=== PATIENT | female | born 1985 | race Caucasian/White ===

== ENCOUNTER 2022-05-01 03:30 | Inpatient (IN) | payer BC ==
[~2022-05-01] VITALS: Ht 162.6 cm; Wt 93.3 kg
[2022-05-01 03:57] LABS: Basophils # (auto) 0.1 10 ^3/uL (0-0.2); Basophils % (auto) 0.8 % (0.0-2.0); Eosinophils # (auto) 0 10 ^3/uL (0-0.8); Eosinophils % (auto) 0.1 % (0.0-7.0); Hematocrit 31.8 % (36.0-46.0); Hemoglobin 11.1 g/dL (12.2-16.2); Lymphocytes # (auto) 0.8 10 ^3/uL (0.4-5.4); Lymphocytes % (auto) 8.7 % (10.0-50.0); Mean Corpuscular Hemoglobin 32.2 pg (28.0-32.0); Mean Corpuscular Hgb Conc. 34.8 g/dL (32.0-36.0); Mean Corpuscular Volume 92.3 fL (80.0-100.0); Monocytes # (auto) 0.4 10 ^3/uL (0-1.3); Monocytes % (auto) 4.1 % (0.0-12.0); Neutrophils # (auto) 7.8 10 ^3/uL (1.6-8.6); Neutrophils % (auto) 86.3 % (37.0-80.0); Red Blood Cells 3.45 10^6/uL (4.0-5.20); Red Cell Distribution Width 12.2 % (11.8-14.3)
[2022-05-01 04:13] LABS: Albumin 3.8 g/dL (3.4-5.0); Calcium 8.6 mg/dL (8.5-10.1); Potassium 4.8 mmol/L (3.5-5.1)
[2022-05-01 04:17] LABS: BUN/Creatinine Ratio 22.4; Bilirubin, Total 0.3 mg/dL (0.2-1.0); Total Protein 6.7 g/dL (6.4-8.2)
[2022-05-01 07:16] LABS: Urine WBC None Seen /hpf (0 - 5)
[2022-05-01 07:50] LABS: Urine Amorphous Crystal MOD /hpf (None Seen); Urine Bacteria NONE SEEN /hpf (None Seen); Urine Blood Negative /uL (Negative); Urine Mucus FEW (None Seen); Urine Specific Gravity 1.031 (1.001-1.035)
[2022-05-01] MEDS ORDERED: ceFAZolin 1GM/50ML 100 ML IV ONE (08:05)
[2022-05-01] MEDS ORDERED: fentaNYL CITRATE 5 ML ONE (08:24)
[2022-05-01] MEDS ORDERED: MIDAZOLAM HCL 2MG/2ML 2ml VIAL (1mg/ml) ONE (08:24)
[2022-05-01] MEDS ORDERED: ROCURONIUM 10MG/ML 10ML VIAL IV ONE (08:24)
[2022-05-01 08:31] LABS: INR 0.98 (0.9-1.15); Partial Thromboplastin Time 24.5 sec (24.6-33.4)
[2022-05-01] MEDS ORDERED: PROPOFOL 10 MG/ML 20 ML IV ONE (08:36)
[2022-05-01] MEDS ORDERED: ONDANSETRON HCL 4 MG/2 ML VIAL ONE (08:36)
[2022-05-01] MEDS ORDERED: LIDOCAINE 2% (LOCAL ANESTH.) PF 5ml SDV ONE (08:36)
[2022-05-01] MEDS ORDERED: RHO (D) IMMUNE GLOBULIN 300 MCG INJ IM PRN (09:15)
[2022-05-01] MEDS: SODIUM CHLORIDE 0.9% 1,000 ML IV SCH ×3 (09:15→16:43)
[2022-05-01] MEDS ORDERED: ONDANSETRON HCL 4 MG/2 ML VIAL IV PRN ×2 (09:15→10:30)
[2022-05-01] MEDS ORDERED: GLYCOPYRROLATE 0.2 MG/ML 1ML VIAL ONE (10:02)
[2022-05-01] MEDS ORDERED: NEOSTIGMINE 1 MG/ML INJ (10mg/10ML VIAL) ONE (10:02)
[2022-05-01] MEDS ORDERED: HYDR-4902 PO (10:27)
[2022-05-01] MEDS ORDERED: FER325T PO (10:27)
[2022-05-01] MEDS ORDERED: DOCU1CAP46 PO (10:27)
[2022-05-01] MEDS ORDERED: FERR1TAB17 PO (10:27)
[2022-05-01] MEDS ORDERED: IBUP800T27 PO (10:27)
[2022-05-01] MEDS ORDERED: HYDROmorphone HCL 2 MG/ML VL/or syr IV PRN (10:30)
[2022-05-01] MEDS: HYDROmorphone HCL 2 MG/ML VL/or syr IV PRN ×7 (10:53→20:46)
[2022-05-01 13:19] LABS: Basophils # (auto) 0 10 ^3/uL (0-0.2); Basophils % (auto) 0.1 % (0.0-2.0); Eosinophils # (auto) 0 10 ^3/uL (0-0.8); Hematocrit 28.8 % (36.0-46.0); Lymphocytes # (auto) 1.4 10 ^3/uL (0.4-5.4); Lymphocytes % (auto) 10.1 % (10.0-50.0); Mean Corpuscular Hgb Conc. 34.7 g/dL (32.0-36.0); Mean Corpuscular Volume 92.2 fL (80.0-100.0); Monocytes # (auto) 0.9 10 ^3/uL (0-1.3); Monocytes % (auto) 6.3 % (0.0-12.0); Neutrophils # (auto) 11.4 10 ^3/uL (1.6-8.6); Neutrophils % (auto) 83.5 % (37.0-80.0); Red Blood Cells 3.12 10^6/uL (4.0-5.20); Red Cell Distribution Width 12.4 % (11.8-14.3); White Blood Cell 13.6 10^3/uL (4.4-10.8)
[2022-05-01 16:37] VITALS: BP 106/60
[2022-05-01 17:00] VITALS: BP 106/60
[2022-05-01 20:00] VITALS: BP 95/49
[2022-05-01 22:00] VITALS: BP 95/49
[2022-05-01] MEDS: ceFAZolin 1GM/50ML 50 ML IV SCH ×2 (22:27→22:53)
[2022-05-02] VITALS (7 sets, daily range): BP systolic 100–117; BP diastolic 42–64
[2022-05-02] MEDS ORDERED: KETOROLAC TROMETH 30 MG/ML 1ML VIAL IV ONE (00:45)
[2022-05-02] MEDS: HYDROmorphone HCL 2 MG/ML VL/or syr IV PRN (04:31)
[2022-05-02 05:56] LABS: Basophils # (auto) 0 10 ^3/uL (0-0.2); Basophils % (auto) 0.3 % (0.0-2.0); Eosinophils # (auto) 0 10 ^3/uL (0-0.8); Eosinophils % (auto) 0.4 % (0.0-7.0); Hemoglobin 9.2 g/dL (12.2-16.2); Lymphocytes # (auto) 1.2 10 ^3/uL (0.4-5.4); Mean Corpuscular Hemoglobin 32.3 pg (28.0-32.0); Mean Corpuscular Hgb Conc. 35.2 g/dL (32.0-36.0); Mean Corpuscular Volume 91.7 fL (80.0-100.0); Monocytes # (auto) 0.7 10 ^3/uL (0-1.3); Monocytes % (auto) 8.6 % (0.0-12.0); Neutrophils # (auto) 6.1 10 ^3/uL (1.6-8.6); Neutrophils % (auto) 75.7 % (37.0-80.0); Red Blood Cells 2.83 10^6/uL (4.0-5.20); Red Cell Distribution Width 12.5 % (11.8-14.3); White Blood Cell 8.1 10^3/uL (4.4-10.8)
[2022-05-02] MEDS: ceFAZolin 1GM/50ML 50 ML IV SCH ×3 (06:47→22:59)
[2022-05-02] MEDS ORDERED: BISACODYL 10 MG RECT SUPP PR PRN (09:00)
[2022-05-02] MEDS: HYDROcodone-ACET 5/325MG TAB PO PRN ×3 (09:30→21:58)
[2022-05-02] MEDS: SODIUM CHLORIDE 0.9% 1,000 ML IV SCH ×2 (09:30→15:43)
[2022-05-02] MEDS ORDERED: MELATONIN 5 MG TAB PO ONE (23:00)
[2022-05-03] MEDS: HYDROcodone-ACET 5/325MG TAB PO PRN (02:03)
[2022-05-03 05:00] VITALS: BP 101/54
[2022-05-03] MEDS: ceFAZolin 1GM/50ML 50 ML IV SCH (06:45)
[2022-05-03 08:00] VITALS: BP 113/73
[2022-05-03 08:56] VITALS: BP 113/73
[2022-05-03 09:18] VITALS: BP 113/73
[2022-05-03] MEDS: SODIUM CHLORIDE 0.9% 1,000 ML IV SCH (09:44)
== END 2022-05-03 10:33 | disposition home or self-care (01) | DRG 817 ==
LOC: ER 03:30 → OVERFLOW 10:46 → WEST WING 16:22
PROVIDERS: ADMIT Obstetrics & Gynecology; ATTEND Obstetrics & Gynecology
PROC: 0UC50ZZ Extirpation of Matter from Right Fallopian Tube, Open Approach (ICD-10-PCS; 2022-05-01)
PROC: 10T20ZZ Resection of Products of Conception, Ectopic, Open Approach (ICD-10-PCS; principal; 2022-05-01 08:27)
DX: O00.101 Right tubal pregnancy without intrauterine pregnancy (principal); K66.1 Hemoperitoneum; Z20.822 Contact with and (suspected) exposure to COVID-19
CPT/HCPCS: 36415; 76801; 76817; 80053; 81001; 81025; 83690; 84702; 85025; 85610; 85730; 86850; 86900; 86901; 86920; 87426; G0378; J0690; J1885; J2001; J2250; J2405; J2704

== ENCOUNTER → 2022-05-22 | Outpatient (CLI) | payer BC ==
[~2022-05-22] MED LIST: DOCU1CAP46 PO; FER325T PO; FERR1TAB17 PO; HYDR-4902 PO; IBUP800T27 PO
[2022-05-22 11:32] LABS: Urine Bacteria NONE SEEN /hpf (None Seen); Urine Blood Negative /uL (Negative); Urine Specific Gravity 1.011 (1.001-1.035); Urine WBC <1 /hpf (0 - 5)
== END | disposition home or self-care (01) ==
LOC: LAB 11:14
PROVIDERS: ATTEND Obstetrics & Gynecology
DX: N39.0 Urinary tract infection, site not specified (principal)
CPT/HCPCS: 81001; 87086

== ENCOUNTER 2024-08-22 15:36 | Emergency (ER) | payer BC ==
[~2024-08-22 15:36] MED LIST changes: +IBUP-1456 PO; -IBUP800T27 PO
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
[2024-08-22 16:46] VITALS: BP 140/90; PULSE 77; RESP 17; TEMP 98.7; O2SAT 97
== END 2024-08-22 16:48 | disposition home or self-care (01) ==
LOC: ER 15:38
DX: M54.16 Radiculopathy, lumbar region (principal); Z79.899 Other long term (current) drug therapy